=== PATIENT | female | born 1990 | race Caucasian/White ===

== ENCOUNTER 2018-07-04 19:23 | Emergency (ER) | payer MEDICAID ==
[~2018-07-04] VITALS: Ht 160 cm; Wt 80.3 kg
[2018-07-04 19:26] VITALS: Ht 160 cm; Wt 80.3 kg
[2018-07-04 22:46] VITALS: BP 116/77
== END 2018-07-04 22:54 | disposition home or self-care (01) ==
LOC: ED 19:23
DX: M94.0 Chondrocostal junction syndrome [Tietze] (principal); F43.9 Reaction to severe stress, unspecified; Z98.890 Other specified postprocedural states